=== PATIENT | female | born 1930 | race Caucasian/White ===

== ENCOUNTER → 2017-08-05 | Outpatient (CLI) | payer OTHER ==
--- NOTE | ~2017-08-05 | MY29 ---
[facility] A Service of [facility] & [facility] RADIOLOGY TEXT RESULTS PATIENT: EMMANUELLE HORNE LOCATION: [facility] : [birth year] UNIT #: [id number] AGE: [address]: Cristin Land MD SEX: F ORDER DR: [id number] [facility] [address] [place], [place] [address] [id number] O MR#: [id number] Acc #: [id number] NAME: EMMANUELLE HORNE : 1930 SEX: F STUDY DATE/TIME: 08/05/2017 9:55 UNIT: [facility] ROOM: STUDY DESCRIPTION: MY LISSET SCREENING W/ CAD BILAT Attending Physician: Cristin Land M.D. Referring Physician: Cristin Land M.D. Ordering Physician: Cristin Land M.D. Primary Care Physician: Cristin Land M.D. MEDICAL IMAGING REPORT This report is preliminary unless electronic signature is present EXAM Digital screening mammogram 08/05/2017, [facility]. HISTORY 86-year-old woman, no risk elevation. Annual screening. COMPARISON 01/26/08, 12/19/09, 05/29/16. FINDINGS Digital imaging of each breast was completed utilizing screening protocol. Review includes FDA-approved CAD device. Breast parenchyma is somewhat fatty replaced and mildly heterogeneous, with remaining parenchymal opacities upper outer quadrants of each breast. There is an indeterminate 12-mm mass immediately deep to the left nipple which appears to have some associated retraction of the left nipple areolar complex. This will require additional imaging and may require ultrasound guided tissue sampling if the patient's overall health allows for further evaluation. This appears to represent an interim change at this time. There are no associated microcalcifications and margins are at least partially well-circumscribed. Intraductal papilloma is a possibility. Right breast parenchyma is stable. IMPRESSION Incomplete mammographic evaluation. Additional left breast imaging is recommended. This would include a true lateral projection high-resolution spot compression views, targeted left breast ultrasound and probably ultrasound guided biopsy. See complete report in this regard. Patients over the age of 40 are entered into a reminder system with target due date for the next mammogram. A result letter will be sent to the patient. [facility] A Service of [facility] RADIOLOGY TEXT RESULTS PATIENT: EMMANUELLE HORNE LOCATION: [facility] : [birth year] UNIT #: [id number] AGE: [address]: Cristin Land MD SEX: F ORDER DR: BIRADS: 0 Additional left breast imaging recommended. Dictated by... Crispin Henao M.D. THIS IS AN ELECTRONICALLY VERIFIED REPORT Crispin Henao M.D. at 08/05/2017 2:24 PM MILES/eloisa TD: 08/05/2017 13:02 JOB #: [id number] MEDICAL IMAGING REPORT Page 1 of 1 COPY
== END | disposition home or self-care (01) ==
LOC: CWCC 09:38
DX: Z12.31 Encounter for screening mammogram for malignant neoplasm of breast (principal)
CPT/HCPCS: G0202